=== PATIENT | male | born 1985 | race Caucasian/White ===

== ENCOUNTER 2018-11-30 19:01 | Emergency (ER) | payer SELFPAY ==
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
--- NOTE | 2018-11-30 19:57 | CR ---
INDICATION: cough, + strep TECHNIQUE: Chest 1 view. COMPARISON: None. FINDINGS: Cardiovascular and mediastinum: Heart size and vasculature are normal in caliber and appearance. Mediastinum is within normal limits. Lungs and pleural space: Lungs are clear. No sign of infiltrate or mass. No sign of pleural effusion. No pneumothorax. Bones and soft tissues: No significant findings. IMPRESSION: Unremarkable chest. Dictated by: Kai Dewey MD @ 11/30/2018 19:56:30 (Electronically Signed)
== END 2018-11-30 19:50 | disposition home or self-care (01) ==
LOC: MW.ED 19:01
DX: J02.0 Streptococcal pharyngitis (principal); I10 Essential (primary) hypertension; Z88.0 Allergy status to penicillin
CPT/HCPCS: 71045; 71045-26; 87804; 87880-QW; 99283

== ENCOUNTER 2019-01-27 08:54 | Emergency (ER) | payer OTHER ==
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
== END 2019-01-27 09:55 | disposition home or self-care (01) ==
LOC: MW.ED 08:54
DX: F10.239 Alcohol dependence with withdrawal, unspecified (principal); I10 Essential (primary) hypertension; F17.210 Nicotine dependence, cigarettes, uncomplicated; Z88.0 Allergy status to penicillin
CPT/HCPCS: 99282

== ENCOUNTER 2019-01-31 04:14 | Emergency (ER) | payer SELFPAY ==
[2019-01-31] MEDS ORDERED: Acetaminophen 500 MG Tab ONE (06:35)
[2019-01-31 07:26] LABS: CHLORIDE,CL 108 mmol/L (98-107); SODIUM,NA 146 mmol/L (136-148)
--- NOTE | 2019-02-01 11:28 | CR ---
EXAM DATE: 01/31/19 PATIENT'S AGE: 33 Patient: THI SCHOFIELD Facility: [facility] Site : 1985 Study: [id number]/28/2019 5:22:37 AM Ordering Physician: benigno Final Report: INDICATION: Shortness of breath TECHNIQUE: Chest 1 views COMPARISON: Chest x-ray 11/30/2018 FINDINGS: Cardiovascular and mediastinum: Heart size and vasculature are normal in caliber and appearance. Lungs and pleural spaces: Lungs are clear. No sign of infiltrate or mass. No sign of pleural effusion. No pneumothorax. Bones and soft tissues: No significant findings. IMPRESSION: No acute findings and no significant changes from the prior exam. Dictated by Eliot Moore MD @ Jan 31 2019 5:52AM Signed by: Eliot Moore MD @01/31/2019 5:53:22 AM (Electronic Signature) Report Signed by Proxy. JUSTINE
== END 2019-01-31 09:00 ==
LOC: MW.ED 04:14
DX: F10.10 Alcohol abuse, uncomplicated (principal)
CPT/HCPCS: 36415; 71045; 80053; 80305; 85025; 85610; 85730; 93005; 96361; 96365; 96366; 99285; G0480; 99282

== ENCOUNTER 2019-02-05 07:39 | Emergency (ER) | payer SELFPAY ==
[2019-02-05] MEDS ORDERED: Ketorolac 60 MG/2 ML SDV IM ONE (07:51)
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
--- NOTE | 2019-02-05 08:35 | CR ---
EXAMINATION: Right knee HISTORY: Pain COMPARISON: None TECHNIQUE: 3 views FINDINGS/IMPRESSION: There is a moderate joint effusion and soft tissue swelling along the medial aspect of the knee. There is however no fracture or acute osseous abnormality demonstrated. Bone mineralization is otherwise normal.
== END 2019-02-05 08:51 | disposition home or self-care (01) ==
LOC: MW.ED 07:39
DX: S89.91XA Unspecified injury of right lower leg, initial encounter (principal); I10 Essential (primary) hypertension; Z88.0 Allergy status to penicillin; W18.39XA Other fall on same level, initial encounter
CPT/HCPCS: 73562; 96372; 99283; J1885

== ENCOUNTER 2019-03-24 10:58 | Emergency (ER) | payer SELFPAY ==
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
--- NOTE | 2019-03-26 14:34 | CR ---
EXAM DATE: 03/24/19 PATIENT'S AGE: 33 Patient: THI SCHOFIELD Facility: [facility] Site Site : 1985 Study: XRay-Chest -03/24/2019 4:39:58 PM Ordering Physician: YORDY Final Report: INDICATION: Chest pain and shortness of breath TECHNIQUE: Chest 2 views COMPARISON: January 31, 2019 FINDINGS: Cardiovascular and mediastinum: Heart size and vasculature are normal in caliber and appearance. Lungs and pleural spaces: Lungs are clear. No sign of infiltrate or mass. No sign of pleural effusion. No pneumothorax. Bones and soft tissues: No significant findings. IMPRESSION: No acute findings and no significant changes from the prior exam. Dictated by Pranay Smith MD @ Mar 25 2019 4:44PM Signed by: Pranay Smith MD @03/25/2019 4:46:43 PM (Electronic Signature) Report Signed by Proxy. MTDNatalie
== END 2019-03-24 12:39 | disposition home or self-care (01) ==
LOC: MW.ED 10:58
DX: J40 Bronchitis, not specified as acute or chronic (principal); I10 Essential (primary) hypertension; K21.9 Gastro-esophageal reflux disease without esophagitis; F41.9 Anxiety disorder, unspecified; F32.9 Major depressive disorder, single episode, unspecified; F17.210 Nicotine dependence, cigarettes, uncomplicated; Z88.0 Allergy status to penicillin; Z79.899 Other long term (current) drug therapy
CPT/HCPCS: 71046; 71046-26; 99283-25

== ENCOUNTER 2019-04-27 14:35 | Emergency (ER) | payer OTHER ==
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
[2019-04-27] MEDS ORDERED: Ketorolac 30 MG/ML SDV IVPUSH ONE (14:55)
[2019-04-27 15:16] LABS: CHLORIDE,CL 108 mmol/L (98-107); SODIUM,NA 145 mmol/L (136-148)
--- NOTE | 2019-04-27 15:18 | CR ---
EXAMINATION: Left forearm HISTORY: Fall COMPARISON: None TECHNIQUE: 2 views FINDINGS/IMPRESSION: Nondisplaced radial head fracture is noted. Otherwise Bone mineralization and joint spaces appear preserved. Mild soft tissue swelling along the lateral aspect of the forearm.
--- NOTE | 2019-04-27 15:19 | CR ---
EXAMINATION: Left femur HISTORY: Fall COMPARISON: None TECHNIQUE: 2 views FINDINGS/IMPRESSION: There is no definite fracture or acute osseous abnormality identified. Bone mineralization and joint spaces appear preserved. No suprapatellar joint effusion.
[2019-04-27] MEDS ORDERED: Iopamidol 755 MG/ML 500 ML Multipack Bottle IVPUSH ONE (15:36)
--- NOTE | 2019-04-27 15:56 | CT ---
EXAMINATION: Non contrast CT head. Coronal and sagittal reformats. HISTORY: Fall FINDINGS: No evidence of intra or extra axial hemorrhage, mass, midline shift, hydrocephalus or edema. Small area of encephalomalacia within the left frontal lobe anteriorly. No hypoattenuation changes in the major vascular territories to suggest acute infarct. No abnormal intracranial calcifications are detected. No evidence of substantial vascular calcifications. Paranasal sinuses and mastoid air cells are well aerated without substantial findings. Pituitary fossa appears unremarkable. Calvarium is intact. No evidence of skull fracture. IMPRESSION: No acute intracranial findings.
--- NOTE | 2019-04-27 15:59 | CT ---
EXAMINATION: CT cervical spine without contrast HISTORY: Fall COMPARISON: None TECHNIQUE: Axial CT imaging obtained through the cervical spine without contrast. Coronal and sagittal reconstructions obtained. FINDINGS: The cervical spinal alignment is normal. The vertebral body heights and disc spaces appear well-maintained. Bone mineralization is normal. Paravertebral soft tissues appear normal. Lung apices are clear. IMPRESSION: No acute cervical spinal abnormality.
--- NOTE | 2019-04-27 16:07 | CT ---
CT of the chest, abdomen and pelvis with contrast. HISTORY: Trauma TECHNIQUE: Axial CT images were obtained of the chest, abdomen and pelvis following administration of a total of 140 mL of Isovue-370 in the right arm without complication. Coronal and sagittal reconstructions obtained. FINDINGS: Chest: The lungs are clear without focal consolidation. There is mild groundglass within the left lower lower lobe and left lung base. No pleural effusion. There is a minimal left pneumothorax small amount of air within the precardiac space. There is a nondisplaced left sixth rib fracture however this appears healing there is an adjacent acute appearing left seventh rib fracture. The heart is normal in size without pericardial effusion. No mediastinal, hilar, or axillary lymphadenopathy. Trace soft tissue within the anterior mediastinum, likely residual thymic tissue. Thoracic aorta is normal in caliber. Main pulmonary arteries are patent. Abdomen: Likely a small subtle laceration within the left hepatic lobe laterally. Spleen, adrenal glands, pancreas appear normal. The gallbladder is normal. Trace perihepatic hemoperitoneum is noted. The kidneys enhance and function symmetrically without evidence of obstructive uropathy. Small renal cortical cysts are noted. Pelvis: The large and small bowel are normal in caliber without evidence of obstruction. No pericolonic inflammation or stranding. Appendix is normal. No bulky pelvic lymphadenopathy or free pelvic fluid. The urinary bladder is normal. Nondisplaced left superior and inferior pubic rami fractures IMPRESSION: 1. Minimal left-sided pneumothorax with a nondisplaced left sixth and seventh rib fractures. 2. Likely small left hepatic lobe laceration with a minimal amount of hemoperitoneum. 3. Nondisplaced left superior and inferior pubic rami fractures.
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
== END 2019-04-27 19:36 ==
LOC: MW.ED 14:35
DX: S06.0X0A Concussion without loss of consciousness, initial encounter (principal); S22.42XA Multiple fractures of ribs, left side, initial encounter for closed fracture; S32.9XXA Fracture of unspecified parts of lumbosacral spine and pelvis, initial encounter for closed fracture; S52.125A Nondisplaced fracture of head of left radius, initial encounter for closed fracture; S32.512A Fracture of superior rim of left pubis, initial encounter for closed fracture; S27.0XXA Traumatic pneumothorax, initial encounter; S36.113A Laceration of liver, unspecified degree, initial encounter; I10 Essential (primary) hypertension; Z87.442 Personal history of urinary calculi; Z88.0 Allergy status to penicillin; Z04.3 Encounter for examination and observation following other accident; W17.89XA Other fall from one level to another, initial encounter
CPT/HCPCS: 29105; 36415; 70450; 71260; 72125; 73090; 73552; 74177; 80053; 81001; 85025; 93005; 96374; 99285; J1885; Q9967

== ENCOUNTER 2019-05-25 13:49 | Emergency (ER) | payer OTHER ==
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
== END 2019-05-25 14:28 | disposition home or self-care (01) ==
LOC: MW.ED 13:49
DX: Z76.0 Encounter for issue of repeat prescription (principal); I10 Essential (primary) hypertension; F17.210 Nicotine dependence, cigarettes, uncomplicated; Z88.0 Allergy status to penicillin; Z79.899 Other long term (current) drug therapy; Z87.442 Personal history of urinary calculi
CPT/HCPCS: 99283

== ENCOUNTER 2020-07-19 09:52 | Emergency (ER) | payer SELFPAY ==
[2020-07-19] MEDS ORDERED: Bacitracin Oint 1 GM U/D Packet TOP ONE (10:21)
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
== END 2020-07-19 10:35 | disposition home or self-care (01) ==
LOC: MW.ED 09:52
DX: S61.432A Puncture wound without foreign body of left hand, initial encounter (principal); I10 Essential (primary) hypertension; Z88.0 Allergy status to penicillin; W26.0XXA Contact with knife, initial encounter
CPT/HCPCS: 99282

== ENCOUNTER 2020-07-20 01:47 | Emergency (ER) | payer SELFPAY ==
[2020-07-20] MEDS ORDERED: LORazepam 2 MG/ML SDV IM ONE (01:58)
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
[2020-07-20] MEDS ORDERED: OLANZapine 10 MG Vial ONE (03:04)
[2020-07-20] MEDS ORDERED: OLANZapine 10 MG in Water For Injection, Sterile 2.1 ML IM ONE (03:04)
[2020-07-20] MEDS ORDERED: Water For Injection, Sterile 20 ML ONE (03:07)
[2020-07-20] MEDS ORDERED: Sodium Chloride 0.9% 2.5 ML Syringe FLUSH PRN (04:07)
[2020-07-20] MEDS ORDERED: Sodium Chloride 0.9% 10 ML Syringe FLUSH PRN (04:07)
[2020-07-20] MEDS ORDERED: Sodium Chloride 0.9% 1,000 ML IV ONE (04:08)
[2020-07-20 05:04] LABS: BLOOD UREA NITROGEN,BUN 17 mg/dL (7.0-18.0); CARBON DIOXIDE,CO2 23.9 mmol/L (21.0-32.0); CHLORIDE,CL 104 mmol/L (98-107); GLUCOSE RANDOM 106 mg/dL (74-106); POTASSIUM,K 3.3 mmol/L (3.5-5.1); SODIUM,NA 140 mmol/L (136-148)
== END 2020-07-20 09:38 | disposition home or self-care (01) ==
LOC: MW.ED 01:47
DX: F15.10 Other stimulant abuse, uncomplicated (principal); I10 Essential (primary) hypertension; Z88.0 Allergy status to penicillin; F17.210 Nicotine dependence, cigarettes, uncomplicated
CPT/HCPCS: 36415; 80053; 85025; 93005; 96372; 99284; J2060; J3490; J7030